=== PATIENT | male | born 1960 | race Caucasian/White ===

== ENCOUNTER 2024-05-26 07:22 | Day surgery (SDC) | payer OTHER ==
[2024-05-23 14:36] LABS: Absolute Basophils 0.1 K/uL (0-0.5); Absolute Eosinophils 0.3 K/uL (0-0.5); Absolute Lymphocytes (CBC) 2.2 K/uL (0.7-4.9); Absolute Monocytes 0.7 K/uL (0.1-1.3); Basophils % 0.8 % (0-1.3); Eosinophils % 3.1 % (0-4.4); Hematocrit 42.5 % (39.6-49.0); Hemoglobin 14.6 g/dL (13.6-17.9); Lymphocytes % 23.9 % (15.3-44.8); MCHC 34.5 g/dL (32.0-36.0); MPV 8.2 fL (7.6-11.3); Monocytes % 8.1 % (3.3-12.3); Neutrophils % 64.1 % (41.7-73.7); Platelets 203 thou/uL (152-406); RBC Red Blood Cell Count 4.89 M/uL (4.33-5.43); Red Cell Distribution Width 13.9 % (12.1-15.2)
[2024-05-23 14:40] LABS: Anion Gap 7.9 mEq/L (5.0-15.0); Potassium 3.9 mEq/L (3.5-5.1)
--- NOTE | 2024-05-25 08:43 | EKG ---
Test Date: 2024-05-23 Test Time: 14:10:38 Track Service Person: HEMANT MEASUREMENT RESULTS: Intervals: Rate: 71 FL: 162 QRSD: 94 QT: 396 QTc: 430 [place]: P: 69 FL: 162 QRS: 53 T: 29 INTERPRETIVE STATEMENTS: Normal sinus rhythm Normal ECG Compared to ECG 03/17/2023 11:59:48 No significant changes Electronically Signed On 05-25-24 08:37:36 CDT by Jonah Mariano
[2024-05-26] MEDS: Ringers Lactate 1,000 ML IV ONE (08:25)
[2024-05-26] MEDS ORDERED: propofoL 200 MG/20 ML VIAL IV ONE (09:58)
[2024-05-26] MEDS ORDERED: ONDANSETRON 4 MG/2 ML VIAL ONE (09:58)
[2024-05-26] MEDS ORDERED: MIDAZOLAM HCL 2 MG/2 ML INJ ONE (09:59)
[2024-05-26] MEDS ORDERED: FENTANYL CITR 100 MCG/2 ML ONE (09:59)
[2024-05-26] MEDS ORDERED: LIDOCAINE 2% MPF 5 ML VIAL ONE (09:59)
[2024-05-26] MEDS ORDERED: OXYMETAZOLINE HCL 0.05% 30ML NAS ONE (10:03)
[2024-05-26] MEDS ORDERED: OFLOXACIN OPH 0.3%-5 ML BTL ONE (10:03)
[2024-05-26] MEDS ORDERED: dexAMETHasone 4 MG/ML VIAL ONE (10:29)
--- NOTE | 2024-05-26 10:48 | P.OP ---
Date of Service: 05/26/24 Preoperative diagnosis: Bilateral mixed hearing loss, chronic bilateral eustachian tube salpingitis, tympanosclerosis Postoperative diagnosis: Same Procedure: bilateral myringotomy and tympanostomy tube placement Surgeon: Milly Irby MD Tax Record Clerk: None Anesthesia: General via inhalational mask Estimated blood loss: Nil Fluids/blood products: None Specimen: None Implants: Case T tubes Findings: No significant middle ear fluid. Significant scarring with tympanosclerosis worse on the left side Indication: The patient had persistent symptoms and abnormal findings in spite of good medical management. Details of operation: The patient was brought to the operating room and placed under general anesthesia via inhalational mask. The left ear was visualized under the operating microscope with assistance of an ear speculum. Cerumen was removed from the canal using a wire curette. A myringotomy incision was made in the anterior-inferior quadrant and scant fluid was aspirated from the middle ear space. A Case T tube was positioned across the incision using an alligator forcep and pick. A similar procedure was performed on the right side. Cerumen was removed from the canal using a wire curette. A myringotomy incision was made in the anterior-inferior quadrant and scant fluid was aspirated from the middle ear space. A Case T tube was positioned across the incision using an alligator forcep and pick. The procedure was concluded and the patient was awakened from anesthesia and transported to the recovery room in stable condition. Disposition the patient will be discharged home later today in the care of their family and follow-up with Dr. Irby's office in approximately 1 to 2 weeks. Postoperative plan of care includes routine monitoring in the clinic every [address] Irby or her associates. If the patient develops drainage from the ears, they can be treated with office visit for suctioning and/or prescription of antibiotic drops or combination steroid antibiotic drops. 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
[2024-05-26 11:42] VITALS: BP 134/84; TEMP 97.5
[2024-05-26 11:59] VITALS: O2SAT 95
== END 2024-05-26 11:55 | disposition home or self-care (01) ==
LOC: OR 07:22
PROVIDERS: ATTEND Otolaryngology
PROC: 099570Z Drainage of Right Middle Ear with Drainage Device, Via Natural or Artificial Opening (ICD-10-PCS; 2024-05-26)
PROC: 099670Z Drainage of Left Middle Ear with Drainage Device, Via Natural or Artificial Opening (ICD-10-PCS; principal; 2024-05-26 09:15)
DX: H74.03 Tympanosclerosis, bilateral (principal); H90.6 Mixed conductive and sensorineural hearing loss, bilateral; H68.023 Chronic Eustachian salpingitis, bilateral
CPT/HCPCS: 69436; 93005; 85025; 80048; 36415; J2704; J1100; J2003; J2250; J3010; J2405; J7120